=== PATIENT | male | born 1945 | race Caucasian/White ===

== ENCOUNTER 2023-04-18 07:24 | Day surgery (SDC) | payer OTHER ==
[~2023-04-18] VITALS: Ht 167.6 cm; Wt 106.6 kg
[~2023-04-18 07:24] MED LIST: COZAAR100 MG PO; HUMULIN R100 UNIT/1 SUBCUTANEO; LANTUS SOL100 UNIT/1; METFORMIN HCL1000 M2 PO; ZOCOR20 MG PO
== END 2023-04-18 14:30 | disposition home or self-care (01) ==
LOC: CIR.AMB 07:24
PROVIDERS: ATTEND Otolaryngology
DX: C02.1 Malignant neoplasm of border of tongue (principal); D37.02 Neoplasm of uncertain behavior of tongue; K14.8 Other diseases of tongue; K14.6 Glossodynia; Z20.822 Contact with and (suspected) exposure to COVID-19; I10 Essential (primary) hypertension; E11.9 Type 2 diabetes mellitus without complications